=== PATIENT | female | born 1935 | race Caucasian/White ===

== ENCOUNTER 2018-08-12 12:20 | Emergency (ER) | payer MEDICARE ==
[~2018-08-12] VITALS: Ht 165.1 cm; Wt 52.2 kg
--- NOTE | 2018-08-12 13:00 | NUR ---
Dr. Saldaña in with pt. Dr. Saldaña feels pt's issue is more of a hip/joint problem versus stroke symptoms.
[2018-08-12 13:57] LABS: BASOPHILS # (AUTO) 0.1 10^3/uL (0.0-0.1); BASOPHILS % (AUTO) 1 % (0-10); EOSINOPHILS # (AUTO) 0.1 10^3/uL (0.0-0.3); EOSINOPHILS % (AUTO) 1 % (0-10); HEMATOCRIT 37 % (35-52); HEMOGLOBIN 12.2 G/DL (11.5-16.0); LYMPHOCYTES # (AUTO) 2.5 X 10^3 (1.0-4.0); LYMPHOCYTES % (AUTO) 25 % (12-44); MEAN CORPUSCULAR HEMOGLOBIN 30 PG (25-34); MEAN CORPUSCULAR HGB CONC 33 G/DL (32-36); MEAN CORPUSCULAR VOLUME 91 FL (80-99); MEAN PLATELET VOLUME 11.2 FL (7.4-10.4); MONOCYTES # (AUTO) 1.6 X 10^3 (0.0-1.0); MONOCYTES % (AUTO) 16 % (0-12); NEUTROPHILS # (AUTO) 5.6 X 10^3 (1.8-7.8); NEUTROPHILS % (AUTO) 57 % (42-75); PLATELET COUNT 304 10^3/uL (130-400); RED CELL DISTRIBUTION WIDTH 13.9 % (10.0-14.5); WHITE BLOOD COUNT 9.9 10^3/uL (4.3-11.0)
--- NOTE | 2018-08-12 14:05 | Diagnostic Imaging Report ---
EXAM: PELVIS WITH RIGHT HIP 2-3VIEWS INDICATION: Right groin pain. Right leg numbness. COMPARISON: None. FINDINGS: No fracture malalignment. No suspicious osteoblastic or lytic lesions. Soft tissue shadows unremarkable. IMPRESSION: Negative right hip radiographs. Dictated by: Dictated on workstation # [id number]
[2018-08-12 14:07] LABS: BILIRUBIN,URINE NEGATIVE (NEGATIVE); CLARITY,URINE SLIGHTLY CLOUDY; COLOR,URINE YELLOW; GLUCOSE, URINE (UA) NEGATIVE (NEGATIVE); KETONES,URINE NEGATIVE (NEGATIVE); LEUKOCYTE ESTERASE ,URINE 1+ (NEGATIVE); NITRITE,URINE NEGATIVE (NEGATIVE); PH,URINE 8 (5-9); PROTEIN,URINE NEGATIVE (NEGATIVE); UROBILINOGEN,URINE NORMAL (NORMAL)
[2018-08-12 14:11] LABS: ALANINE AMINOTRANSFERASE 13 U/L (0-55); ALBUMIN 4.1 GM/DL (3.2-4.5); ALKALINE PHOSPHATASE 84 U/L (40-136); BILIRUBIN,TOTAL 0.7 MG/DL (0.1-1.0); BUN/CREATININE RATIO 15; CALCIUM 10.7 MG/DL (8.5-10.1); CARBON DIOXIDE 25 MMOL/L (21-32); CHLORIDE 100 MMOL/L (98-107); CREATININE SERUM 0.86 MG/DL (0.60-1.30); GFR ESTIMATED > 60; GLUCOSE 98 MG/DL (70-105); POTASSIUM 3.9 MMOL/L (3.6-5.0); SODIUM 138 MMOL/L (135-145); TOTAL PROTEIN 7.4 GM/DL (6.4-8.2)
--- NOTE | 2018-08-12 14:17 | ED General ---
General Chief Complaint: Neuro-Stroke Like Symptoms Stated Complaint: DIZZINESS, LEG PAIN Nursing Triage Note: Pt to rm 4 in wheelchair. Family reports pt had recent stroke and is concerned pt may be having another stroke today. Pt reports severe R groin pain and leg numbness. Pt feels there is a knot in the groin and has persisted for two days. 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 Nursing Sepsis Screen: No Definite Risk Source of Information: Patient, Family Exam Limitations: No Limitations History of Present Illness Date Seen by Provider: Aug 12, 2018 Time Seen by Provider: 13:15 Initial Comments This 82-year-old woman presents to the emergency room with her daughters with primary complaint of right groin pain. Patient recently had a CVA with symptoms of nausea and dizziness. Those symptoms seem to have improved and she has no residual symptoms at this time. However, over the past couple of days she has had increasing right groin pain. When she has the pain she sometimes feels lightheaded again. Family notes that the other day she walked more than usual with her walker and pain seemed to start after that. Focus of pain seems to be just distal to the inguinal canal on the right. Patient can get rather anxious since her stroke according to family. Allergies and Home Medications Allergies Coded Allergies: aspirin (Verified Allergy, Unknown, 08/12/18) codeine (Verified Allergy, Unknown, 08/12/18) indomethacin (Verified Allergy, Unknown, 08/12/18) metoclopramide (Verified Allergy, Unknown, 08/12/18) metronidazole (Verified Allergy, Unknown, 08/12/18) Uncoded Allergies: NSAIDS (Allergy, Unknown, 08/12/18) PENICILLIN (Allergy, Unknown, 08/12/18) Home Medications Tramadol HCl 50 Mg Tablet, 25-50 MG PO TID PRN for PAIN-MODERATE TO SEVERE Start with one half tablet. Check with neurologist before taking. Prescribed by: JOSE BLANCA on 08/12/18 4924 Patient Home Medication List Home Medication List Reviewed: Yes Review of Systems Review of Systems Constitutional: no symptoms reported EENTM: no symptoms reported Respiratory: no symptoms reported Cardiovascular: no symptoms reported Gastrointestinal: no symptoms reported Genitourinary: no symptoms reported Musculoskeletal: no symptoms reported Skin: no symptoms reported Psychiatric/Neurological: See HPI Hematologic/Lymphatic: No Symptoms Reported Immunological/Allergic: no symptoms reported Past Oskisdx-Lpnkqd-Zansiu Hx Patient Social History Alcohol Use: Denies Use Recreational Drug Use: No Smoking Status: Never a Smoker 2nd Hand Smoke Exposure: No Recent Foreign Travel: No Contact w/Someone Who Travel: No Recent Infectious Disease Expo: No Recent Hopitalizations: Yes (stroke) Seasonal Allergies Seasonal Allergies: No Past Medical History Surgeries: Yes (carotid artery) Cardiac Respiratory: No Cardiac: Yes Hypertension Neurological: Yes Stroke Genitourinary: No Gastrointestinal: No Musculoskeletal: Yes Osteoporosis Endocrine: No HEENT: No Cancer: No Psychosocial: No Integumentary: No Blood Disorders: No Adverse Reaction/Blood Tranf: No Physical Exam Vital Signs Vital Signs - First Documented 08/12/18 12:20 Temp 98.8 Pulse 90 Resp 25 B/P (MAP) 138/73 (94) Pulse Ox 98 O2 Delivery Room Air Capillary Refill : Less Than 3 Seconds Height, Weight, BMI Height: 5'5.00" Weight: 115lbs. oz. 52.274351zc; BMI Method:Stated General Appearance: WD/WN, Mild Distress HEENT: PERRL/EOMI, Normal ENT Inspection Neck: Normal Inspection Respiratory: Lungs Clear, Normal Breath Sounds, No Accessory Muscle Use, No Respiratory Distress Cardiovascular: Regular Rate, Rhythm, No Edema, No Murmur Gastrointestinal: Normal Bowel Sounds, Non Tender, Soft Extremity: Normal Inspection, No Pedal Edema, Other (pain just distal to the right inguinal region over the right hip joint. Mild pain with rotation and flexion of the right hip. No mass or bulging noted in the inguinal canal or right lower quadrant of the abdomen.) Neurologic/Psychiatric: Alert, Oriented x3, No Motor/Sensory Deficits, Normal Mood/Affect, casualty claim adjuster II-XII Norm as Tested Skin: Normal Color, Warm/Dry Progress/Results/Core Measures Suspected Sepsis Recent Fever Within 48 Hours: No Infection Criteria Present: None New/Unexplained Altered Menta: No Sepsis Screen: No Definite Risk SIRS Temperature:98.8 Pulse: 90 Respiratory Rate: 25 Laboratory Tests 08/12/18 12:40: White Blood Count 9.9 Blood Pressure 138 /73 Mean: 94 Laboratory Tests 08/12/18 12:40: Creatinine 0.86, Platelet Count 304, Total Bilirubin 0.7 Results/Orders Lab Results Laboratory Tests Test 08/12/18 12:40 08/12/18 13:55 Range/Units White Blood Count 9.9 4.3-11.0 10^3/uL Red Blood Count 4.04 L 4.35-5.85 10^6/uL Hemoglobin 12.2 11.5-16.0 G/DL Hematocrit 37 35-52 % Mean Corpuscular Volume 91 80-99 FL Mean Corpuscular Hemoglobin 30 25-34 PG Mean Corpuscular Hemoglobin Concent 33 32-36 G/DL Red Cell Distribution Width 13.9 10.0-14.5 % Platelet Count 304 130-400 10^3/uL Mean Platelet Volume 11.2 H 7.4-10.4 FL Neutrophils (%) (Auto) 57 42-75 % Lymphocytes (%) (Auto) 25 12-44 % Monocytes (%) (Auto) 16 H 0-12 % Eosinophils (%) (Auto) 1 0-10 % Basophils (%) (Auto) 1 0-10 % Neutrophils # (Auto) 5.6 1.8-7.8 X 10^3 Lymphocytes # (Auto) 2.5 1.0-4.0 X 10^3 Monocytes # (Auto) 1.6 H 0.0-1.0 X 10^3 Eosinophils # (Auto) 0.1 0.0-0.3 10^3/uL Basophils # (Auto) 0.1 0.0-0.1 10^3/uL Sodium Level 138 135-145 MMOL/L Potassium Level 3.9 3.6-5.0 MMOL/L Chloride Level 100 98-107 MMOL/L Carbon Dioxide Level 25 21-32 MMOL/L Anion Gap 13 5-14 MMOL/L Blood Urea Nitrogen 13 7-18 MG/DL Creatinine 0.86 0.60-1.30 MG/DL Estimat Glomerular Filtration Rate > 60 BUN/Creatinine Ratio 15 Glucose Level 98 70-105 MG/DL Calcium Level 10.7 H 8.5-10.1 MG/DL Corrected Calcium 10.6 H 8.5-10.1 MG/DL Total Bilirubin 0.7 0.1-1.0 MG/DL Aspartate Amino Transf (AST/SGOT) 18 5-34 U/L Alanine Aminotransferase (ALT/SGPT) 13 0-55 U/L Alkaline Phosphatase 84 40-136 U/L C-Reactive Protein High Sensitivity 1.96 H 0.00-0.50 MG/DL Total Protein 7.4 6.4-8.2 GM/DL Albumin 4.1 3.2-4.5 GM/DL Urine Color YELLOW Urine Clarity SLIGHTLY CLOUDY Urine pH 8 5-9 Urine Specific [place] 1.010 L 1.016-1.022 Urine Protein NEGATIVE NEGATIVE Urine Glucose (UA) NEGATIVE NEGATIVE Urine Ketones NEGATIVE NEGATIVE Urine Nitrite NEGATIVE NEGATIVE Urine Bilirubin NEGATIVE NEGATIVE Urine Urobilinogen NORMAL NORMAL MG/DL Urine Leukocyte Esterase 1+ H NEGATIVE Urine RBC (Auto) NEGATIVE NEGATIVE Urine RBC NONE /HPF Urine WBC 0-2 /HPF Urine Squamous Epithelial Cells NONE /HPF Urine Crystals NONE /LPF Urine Bacteria NEGATIVE /HPF Urine Casts NONE /LPF Urine Mucus NEGATIVE /LPF Urine Culture Indicated NO Micro Results Microbiology 08/12/18 Influenza Types A,B Antigen (DARREN) - Final, Complete My Orders Orders - JOSE PARK MD Cbc With Automated Diff (08/12/18 13:26) Comprehensive Metabolic Panel (08/12/18 13:26) Hs C Reactive Protein (08/12/18 13:26) Ua Culture If Indicated (08/12/18 13:26) Influenza A And B Antigens (08/12/18 13:26) Pelvis With Right Hip 2-3views (08/12/18 13:26) Saline Lock/Iv-Start (08/12/18 13:26) Acetaminophen Tablet/Caplet (Tylenol T (08/12/18 15:15) Medications Given in ED Current Medications Medications Dose Ordered Sig/Dagoberto Route Start Time Stop Time Status Last Admin Dose Admin Acetaminophen 650 mg ONCE ONCE PO 08/12/18 15:15 08/12/18 15:16 DC 08/12/18 15:15 650 MG Vital Signs/I&O 08/12/18 08/12/18 12:20 15:22 Temp 98.8 98.8 Pulse 90 82 Resp 25 22 B/P (MAP) 138/73 (94) 135/69 (91) Pulse Ox 98 98 O2 Delivery Room Air Room Air Capillary Refill : Less Than 3 Seconds Blood Pressure Mean: 94 Progress Note : Progress Note Workup was unremarkable. I discussed options for therapies with patient and her family. Icing was recommended. Patient is hesitant to try any pharmacologic therapies aside from Tylenol. I did prescribe Ultram as a potential treatment. However, because of the potential to lower seizure threshold, I want her to check with her neurologist before starting Ultram. Patient was given crackers, water, and Tylenol before departure. I do believe her symptoms are likely from musculoskeletal strain from the extra walking she did a couple days ago. Diagnostic Imaging Diagonstic Imaging: Xray Plain Films/CT/US/NM/MRI: pelvis, hip Comments X-ray of the right hip and pelvis viewed by me and report reviewed. See report below: NAME: [facility] REC#: [id number] PT STATUS: REG ER : 1935 PHYSICIAN: JOSE PARK MD ADMIT DATE: 08/12/18/ER Draft Date of Exam:08/12/18 PELVIS WITH RIGHT HIP 2-3VIEWS EXAM: PELVIS WITH RIGHT HIP 2-3VIEWS INDICATION: Right groin pain. Right leg numbness. COMPARISON: None. FINDINGS: No fracture malalignment. No suspicious osteoblastic or lytic lesions. Soft tissue shadows unremarkable. IMPRESSION: Negative right hip radiographs. Dictated on workstation # [id number] Dict: 08/12/18 1355 Trans: 08/12/18 1404 [facility] [id number] Interpreted by: LUDMILA LINARES MD Departure Impression Primary Impression: Right groin pain Disposition: 01 HOME, SELF-CARE Condition: Improved Departure-Patient Inst. Referrals: NO,LOCAL PHYSICIAN (PCP/Family) Primary Care Physician Patient Instructions: Groin Strain Add. Discharge Instructions: You may take Tylenol (acetaminophen) up to 650 mg every 6 hours as needed. You may apply ice in 20 minute intervals to help with pain and inflammation. Consider adding tramadol (Ultram) one half to one full tablet 3 times daily for additional pain control. This medication has potential to cause constipation. Consider taking a stool softener when you take it. Check with your neurologist before taking Ultram since she recently had a stroke. Follow-up with your primary care provider soon as possible. Consider discussing starting a low-dose antidepressant to help with anxiety. Return to care if symptoms are worsening despite the measures above. All discharge instructions reviewed with patient and/or family. Voiced understanding. Scripts Tramadol HCl (Ultram) 50 Mg Tablet 25-50 MG PO TID PRN for PAIN-MODERATE TO SEVERE, #10 TAB Start with one half tablet. Check with neurologist before taking. Prov: JOSE PARK MD 08/12/18 JOSE PARK MD Aug 12, 2018 14:17
[2018-08-12 14:38] LABS: BACTERIA,URINE NEGATIVE /HPF; WBC,URINE 0-2 /HPF
[2018-08-12] MEDS ORDERED: TRAM-42 PO (15:13)
[2018-08-12] MEDS ORDERED: ACETAMINOPHEN 325 MG TABLET PO ONE (15:15)
--- NOTE | 2018-08-12 15:15 | NUR ---
BP at 1515 inaccurate as cuff was displaced on pt's arm.
[2018-08-12 15:22] VITALS: BP 135/69
== END 2018-08-12 15:22 | disposition home or self-care (01) ==
LOC: ER 12:23
DX: R10.31 Right lower quadrant pain (principal); I10 Essential (primary) hypertension; M81.0 Age-related osteoporosis without current pathological fracture; Z86.73 Personal history of transient ischemic attack (TIA), and cerebral infarction without residual deficits; Z88.6 Allergy status to analgesic agent; Z88.5 Allergy status to narcotic agent; Z88.8 Allergy status to other drugs, medicaments and biological substances; Z88.0 Allergy status to penicillin; Z98.890 Other specified postprocedural states
CPT/HCPCS: 36415; 80053; 81000; 85025; 86141; 87804